=== PATIENT | male | born 1960 | race Caucasian/White ===

== ENCOUNTER 2021-07-23 07:35 | Day surgery (SDC) | payer BC ==
[~2021-07-23] VITALS: Ht 172.7 cm; Wt 87.6 kg
[~2021-07-23 07:35] MED LIST: AMOCLA875 PO
--- NOTE | 2021-07-23 08:42 | NUR ---
07/23/21 0842 AliceNoah PATIENT DETERMINED TO BE ASA APPROPRIATE FOR PROPOFOL SEDATION PRIOR TO START OF PROCEDURE BY DR. VIZCAINO 3-LEAD EKG REVIEWED WITH PHYSICIAN PRIOR TO START OF PROCEDURE. Patient to ENDO 1 History, Chart, Medications and Allergies reviewed before start of procedure. O2 VIA N/C INTACT THROUGHOUT SEDATION/PROCEDURE.
--- NOTE | 2021-07-23 09:28 | NUR ---
Patient up to Ambulate independently. Gait steady. Discharge instructions reviewed with patient. Patient verbalizes understanding. Copy given to patient to take home. WILL Discharge via wheelchair to private car for ride home WITH
== END 2021-07-23 22:45 | disposition home or self-care (01) ==
LOC: ORSCMMR 07:35 → ORSCSDS 08:30 → ORSCMMR 09:30
PROVIDERS: Internal Medicine Gastroenterology
PROC: 0DBK8ZX Excision of Ascending Colon, Via Natural or Artificial Opening Endoscopic, Diagnostic (ICD-10-PCS; principal; 2021-07-23 08:30)
DX: Z12.11 Encounter for screening for malignant neoplasm of colon (principal); D12.2 Benign neoplasm of ascending colon; E78.5 Hyperlipidemia, unspecified; K64.2 Third degree hemorrhoids
CPT/HCPCS: 88305; J2704; J7120

== ENCOUNTER → 2023-09-16 | Outpatient (CLI) | payer BC | LOC: PLD 08:16 → LAB SHORT 08:16 | DX: D48.5 Neoplasm of uncertain behavior of skin (principal) | CPT/HCPCS: 88304 ==